=== PATIENT | male | born 1955 | race Caucasian/White ===

== ENCOUNTER 2017-05-17 13:03 | Inpatient (IN) | payer BC ==
[~2017-05-17] VITALS: Ht 177.8 cm; Wt 101.4 kg
[2017-05-17] MEDS ORDERED: SODIUM CHLORIDE 0.9% 1,000 ML IV ONE (13:40)
[2017-05-17] MEDS ORDERED: NITROGLYCERIN 0.2MG/HR TOPICAL PATCH TD ONE (13:45)
[2017-05-17] MEDS ORDERED: ONDANSETRON HCL 4 MG/2 ML VIAL IV ONE (13:45)
[2017-05-17] MEDS ORDERED: MORPHINE SULFATE 4 MG/ML SYRG IV ONE (13:45)
[2017-05-17] MEDS ORDERED: ASPirin 81 mg TAB PO ONE (13:45)
[2017-05-17 14:04] LABS: Basophils # (auto) 0 uL; Basophils % (auto) 0.6 % (0.0-2.0); CONDITION Y; Eosinophils # (auto) 0.2 uL; Eosinophils % (auto) 2.5 % (0.0-7.0); Hematocrit 47.3 % (41.0-53.0); Hemoglobin 16.3 g/dL (13.5-17.5); Lymphocytes # (auto) 1.7 uL; Lymphocytes % (auto) 25.6 % (10.0-50.0); Mean Corpuscular Hemoglobin 30.5 pg (28.0-32.0); Mean Corpuscular Hgb Conc. 34.4 g/dL (32.0-36.0); Mean Corpuscular Volume 88.7 fL (80.0-100.0); Mean Platelet Volume 8.3 fL (7.4-10.4); Monocytes # (auto) 0.6 uL; Monocytes % (auto) 8.4 % (0.0-12.0); Neutrophils # (auto) 4.1 uL; Neutrophils % (auto) 62.9 % (37.0-80.0); Platelet Count (auto) 265 10^3/uL (140-450); Red Cell Distribution Width 14.4 % (11.6-16.0); White Blood Cell 6.6 10^3/uL (4.4-10.8)
[2017-05-17 14:18] LABS: INR 0.96 (0.9-1.15); Partial Thromboplastin Time 25.7 sec (22.64-33.71); Prothrombin Time 10.5 sec (9.37-12.3)
[2017-05-17 14:34] LABS: Albumin 3.8 g/dL (3.4-5.0); BUN/Creatinine Ratio 13.7; Bilirubin, Total 0.4 mg/dL (0.2-1.0); Calcium 8.7 mg/dL (8.5-10.1); Magnesium 2.4 mg/dL (1.6-2.6); Potassium 4.4 mmol/L (3.5-5.1); Total Protein 7.4 g/dL (6.4-8.2)
[2017-05-17 14:38] LABS: B-Type Natriuretic Peptide 18.2 pg/mL (0-100)
[2017-05-17 14:48] LABS: Temperature: 23.5 C (20.0-25.0)
[2017-05-17] MEDS ORDERED: DEXTROSE (50%) 50ML SYRG IV PRN (16:30)
[2017-05-17] MEDS ORDERED: NITROGLYCERIN 0.4 MG SL TAB SL PRN (16:30)
[2017-05-17] MEDS ORDERED: MORPHINE SULF INJ 2 MG/ML SYRINGE 1ML IV PRN (16:30)
[2017-05-17] MEDS ORDERED: NITROGLYCERIN 0.4 MG SL TAB SL ONE (17:41)
[2017-05-17] MEDS: ACCU-CHEK COMFORT CURVE STRIP VI SCH ×2 (18:38→22:06)
[2017-05-17] MEDS: InsuLIN REG 1unit/0.01ml Soln (100units/ml) SC SCH ×2 (18:38→22:00)
[2017-05-17 22:00] VITALS: BP 115/68
[2017-05-17] MEDS: ATORVASTATIN 20 MG TAB PO SCH (22:06)
[2017-05-17] MEDS: FAMOTIDINE 20 MG TAB PO SCH (22:07)
[2017-05-17] MEDS: METOPROLOL TARTRATE 25 MG TAB PO SCH (22:07)
[2017-05-17] MEDS: busPIRone HCL 10 MG TAB PO SCH (22:08)
[2017-05-17] MEDS: ACETAMINOPHEN 500 MG TAB PO PRN (22:14)
[2017-05-17 22:58] VITALS: BP 115/68
[2017-05-18] MEDS ORDERED: METF-863 PO (00:16)
[2017-05-18] MEDS ORDERED: SIMV10TA84 PO (00:16)
[2017-05-18] MEDS ORDERED: CHOL200021 PO (00:16)
[2017-05-18] MEDS ORDERED: BUSP15TA60 PO (00:16)
[2017-05-18] MEDS ORDERED: ASPI-492 PO (00:16)
[2017-05-18] MEDS ORDERED: GLUC1TAB22 PO (00:16)
[2017-05-18] MEDS ORDERED: METO-158 PO (00:16)
[2017-05-18] MEDS ORDERED: METO25TA5 PO (00:16)
[2017-05-18] MEDS ORDERED: GLIM2TAB33 PO (00:16)
[2017-05-18] MEDS ORDERED: RANI1TAB6 PO (00:16)
[2017-05-18] MEDS ORDERED: CITA-77 PO (00:16)
[2017-05-18] MEDS ORDERED: [UNRECOGNIZED DRUG - CODE] PO (00:16)
[2017-05-18] MEDS: ACETAMINOPHEN 500 MG TAB PO PRN ×2 (04:05→10:09)
[2017-05-18 05:30] VITALS: BP 101/60
[2017-05-18] MEDS: HYDROcodone-ACET 5/325MG TAB PO PRN ×3 (06:27→19:49)
[2017-05-18] MEDS: InsuLIN REG 1unit/0.01ml Soln (100units/ml) SC SCH ×4 (06:41→21:14)
[2017-05-18] MEDS: ACCU-CHEK COMFORT CURVE STRIP VI SCH ×4 (06:41→21:14)
[2017-05-18 08:00] VITALS: BP 100/62
[2017-05-18 08:12] LABS: Cholesterol 110 mg/dL (< 200); HDL Cholesterol 32 mg/dL (40-59); LDL Cholesterol 66 mg/dL (< 100); Triglycerides 105 mg/dL (< 150)
[2017-05-18 09:00] VITALS: BP 100/62
[2017-05-18] MEDS: ASPirin 81 mg TAB PO SCH (10:00)
[2017-05-18] MEDS: CITALOPRAM HYDROBR 20 MG TAB PO SCH (10:01)
[2017-05-18] MEDS: busPIRone HCL 10 MG TAB PO SCH ×2 (10:01→21:15)
[2017-05-18] MEDS: FAMOTIDINE 20 MG TAB PO SCH ×2 (10:01→21:14)
[2017-05-18] MEDS: METOPROLOL TARTRATE 25 MG TAB PO SCH ×2 (10:08→21:14)
[2017-05-18 13:00] VITALS: BP 104/62
[2017-05-18] MEDS ORDERED: MORPHINE SULFATE 4 MG/ML SYRG IV PRN (14:51)
[2017-05-18 16:00] VITALS: BP 132/69
[2017-05-18 20:45] LABS: Urine Bilirubin Negative (Negative); Urine Blood Negative /uL (Negative); Urine Color Yellow (Yellow); Urine Glucose Normal (Normal); Urine Ketone Negative (Negative); Urine Nitrite Negative (Negative); Urine RBC <1 /hpf (0 - 3); Urine Urobilinogen Normal (Negative)
[2017-05-18] MEDS: ATORVASTATIN 20 MG TAB PO SCH (21:14)
[2017-05-18 22:00] VITALS: BP 124/70
[2017-05-19 05:30] VITALS: BP 126/77
[2017-05-19] MEDS: InsuLIN REG 1unit/0.01ml Soln (100units/ml) SC SCH ×4 (06:10→21:36)
[2017-05-19] MEDS: ACCU-CHEK COMFORT CURVE STRIP VI SCH ×4 (06:10→21:36)
[2017-05-19] MEDS: HYDROcodone-ACET 5/325MG TAB PO PRN ×2 (06:10→18:10)
[2017-05-19 06:54] LABS: Basophils # (auto) 0 uL; Basophils % (auto) 0.6 % (0.0-2.0); CONDITION Y; Eosinophils # (auto) 0.2 uL; Eosinophils % (auto) 2.7 % (0.0-7.0); Hematocrit 46.5 % (41.0-53.0); Hemoglobin 15.9 g/dL (13.5-17.5); Lymphocytes # (auto) 2.1 uL; Lymphocytes % (auto) 31.9 % (10.0-50.0); Mean Corpuscular Hemoglobin 31.1 pg (28.0-32.0); Mean Corpuscular Hgb Conc. 34.2 g/dL (32.0-36.0); Mean Corpuscular Volume 91.1 fL (80.0-100.0); Mean Platelet Volume 8.9 fL (7.4-10.4); Monocytes # (auto) 0.6 uL; Neutrophils # (auto) 3.6 uL; Neutrophils % (auto) 55.8 % (37.0-80.0); Platelet Count (auto) 237 10^3/uL (140-450); Red Cell Distribution Width 14.2 % (11.6-16.0); White Blood Cell 6.4 10^3/uL (4.4-10.8)
[2017-05-19 07:22] VITALS: BP 122/75
[2017-05-19 07:41] LABS: Albumin 3.4 g/dL (3.4-5.0); BUN/Creatinine Ratio 12.9; Bilirubin, Total 0.6 mg/dL (0.2-1.0); Calcium 8.3 mg/dL (8.5-10.1); Potassium 4.1 mmol/L (3.5-5.1); Total Protein 6.6 g/dL (6.4-8.2)
[2017-05-19] MEDS: CITALOPRAM HYDROBR 20 MG TAB PO SCH (10:47)
[2017-05-19] MEDS: FAMOTIDINE 20 MG TAB PO SCH ×2 (10:47→21:24)
[2017-05-19] MEDS: ACETAMINOPHEN 500 MG TAB PO PRN ×2 (10:47→21:25)
[2017-05-19] MEDS: ASPirin 81 mg TAB PO SCH (10:47)
[2017-05-19] MEDS: busPIRone HCL 10 MG TAB PO SCH ×2 (10:47→21:25)
[2017-05-19] MEDS: METOPROLOL TARTRATE 25 MG TAB PO SCH ×2 (10:48→21:25)
[2017-05-19 13:07] VITALS: BP 140/75
[2017-05-19 16:42] VITALS: BP 136/76
[2017-05-19] MEDS: ATORVASTATIN 20 MG TAB PO SCH (21:24)
[2017-05-19 22:00] VITALS: BP 137/76
[2017-05-20] MEDS: HYDROcodone-ACET 5/325MG TAB PO PRN (05:22)
[2017-05-20 05:30] VITALS: BP_SYST 118; BP_SYST 145; BP_DIAS 67; BP_DIAS 82
[2017-05-20] MEDS: ACCU-CHEK COMFORT CURVE STRIP VI SCH ×3 (05:55→17:30)
[2017-05-20] MEDS: InsuLIN REG 1unit/0.01ml Soln (100units/ml) SC SCH ×3 (06:00→17:00)
[2017-05-20 08:00] VITALS: BP 140/78
[2017-05-20 09:07] VITALS: BP 140/78
[2017-05-20] MEDS: ASPirin 81 mg TAB PO SCH (10:19)
[2017-05-20] MEDS: busPIRone HCL 10 MG TAB PO SCH (10:19)
[2017-05-20] MEDS: FAMOTIDINE 20 MG TAB PO SCH (10:19)
[2017-05-20] MEDS: METOPROLOL TARTRATE 25 MG TAB PO SCH (10:19)
[2017-05-20] MEDS: CITALOPRAM HYDROBR 20 MG TAB PO SCH (10:19)
[2017-05-20 13:08] VITALS: BP 145/77
[2017-05-20] MEDS ORDERED: ADENOSINE 85 MG in GIVE UN-DILUTED 0 ML IV ONE (15:15)
[2017-05-20 17:26] VITALS: BP 147/84
[2017-05-20 18:44] VITALS: BP 147/84
== END 2017-05-20 19:13 | disposition home or self-care (01) | DRG 303 ==
LOC: ER 13:03 → EDBD 13:03 → TELE 13:04 → TELE-WESTW 20:03
PROVIDERS: ADMIT Internal Medicine; ATTEND Internal Medicine
DX: I25.10 Atherosclerotic heart disease of native coronary artery without angina pectoris (principal); Q89.8 Other specified congenital malformations; E11.9 Type 2 diabetes mellitus without complications; E78.00 Pure hypercholesterolemia, unspecified; E11.22 Type 2 diabetes mellitus with diabetic chronic kidney disease; I12.9 Hypertensive chronic kidney disease with stage 1 through stage 4 chronic kidney disease, or unspecified chronic kidney disease; N18.2 Chronic kidney disease, stage 2 (mild); E11.21 Type 2 diabetes mellitus with diabetic nephropathy; K76.0 Fatty (change of) liver, not elsewhere classified; E66.01 Morbid (severe) obesity due to excess calories; Z90.49 Acquired absence of other specified parts of digestive tract; Z93.4 Other artificial openings of gastrointestinal tract status; Z68.32 Body mass index [BMI] 32.0-32.9, adult; Z80.0 Family history of malignant neoplasm of digestive organs; Z82.5 Family history of asthma and other chronic lower respiratory diseases; Z80.1 Family history of malignant neoplasm of trachea, bronchus and lung; Z82.49 Family history of ischemic heart disease and other diseases of the circulatory system; Z80.52 Family history of malignant neoplasm of bladder; Z82.3 Family history of stroke
CPT/HCPCS: 36415; 70450; 71020; 71250; 72125; 73030; 73590; 74176; 78452; 80053; 80061; 81001; 82962; 83036; 83735; 83880; 84443; 84484; 85025; 85610; 85730; 93005; 93017; 93306; 96374; 96375; 99291; J0153; J1815; J2405

== ENCOUNTER 2025-04-14 11:26 | Inpatient (IN) | payer BC, MEDICARE ==
[~2025-04-14] VITALS: Ht 167.6 cm; Wt 86.2 kg
[~2025-04-14 11:26] MED LIST: ASPI-492 PO; BUSP15TA60 PO; CHOL200021 PO; CITA-77 PO; GLIM2TAB33 PO; GLUC1TAB22 PO; IRBE150T49 PO; METF-1201 PO; METO-158 PO; METO25TA5 PO; RANI-435 PO; SIMV10TA20 PO
--- NOTE | 2025-04-14 11:43 | ED.PDOC ---
History of Present Illness HPI Comments 69-year-old male came to the ER stating that he has been having chest pain which started 3 hours ago while sitting down. Patient states that pain radiates to the left shoulder. He did take two nitro without any relief. He has a history of coronary artery disease with stent placement few years ago by Dr. Horner. Apart from coronary artery disease she does have a history of hypertension diabetes. His blood pressure was 157/68 on arrival. Denies any other symptoms. Time Seen by MD: 11:29 Primary Care Provider: SILVIAK Reviewed Notes: Nurses Notes, Medications, Allergies Allergies: Coded Allergies: NO KNOWN ALLERGIES (Unverified , 05/17/17) Home Meds Reported Medications Cholecalciferol (D3) 2,000 Unit Tab, 2000 UNIT PO DAILY, TAB 05/18/17 Glucosamine Hydrochloride (Glucosamine) 1,500 Mg Tab, 1500 MG PO DAILY, TAB 05/18/17 Metformin Hydrochloride (Metformin Hydrochloride) 850 Mg Tab, 850 MG PO DAILY, TAB 05/18/17 Irbesartan (IRBESARTAN) 150 Mg Tab, 150 MG PO DAILY, TAB 05/18/17 Ranitidine HCl (Ranitidine [address]) 150 Mg Tab, 150 MG PO BID, TAB 05/18/17 Aspirin (Ecotrin Low Strength) 81 Mg Tab, 1 TAB PO DAILY, #90 TAB 3 Refills 05/18/17 Citalopram Hydrobromide (Citalopram Hydrobromide) 20 Mg Tab, 20 MG PO DAILY, TAB 05/18/17 Buspirone Hcl (Buspirone Hcl) 15 Mg Tab, 1 TAB PO BID, #60 TAB 05/18/17 Metoprolol Tartrate (Metoprolol Tartrate) 25 Mg Tab, 25 MG PO HS, TAB 05/18/17 Metoprolol Tartrate (Metoprolol Tartrate) 50 Mg Tab, 50 MG PO DAILY, TAB 05/18/17 Glimepiride (Glimepiride) 2 Mg Tab, 1 TAB PO DAILY, #30 TAB 5 Refills 05/18/17 Simvastatin (Simvastatin) 10 Mg Tab, 10 MG PO HS for 30 Days, MG 05/18/17 Information Source: Patient Mode of Arrival: Ambulatory Severity: Moderate Timing: Hours Duration: Since onset Past Medical History PAST MEDICAL HISTORY: DM, High Lipids, HTN, Denies Surgical History: Denies all surgeries Family History Family History: Unknown Social History Smoker: Non-Smoker Alcohol: Denies ETOH Use Drugs: Denies Drug Use Constitutional: denies: chills, diaphoresis, fatigue, fever, malaise, sweats, weakness, others EENTM: denies: blurred vision, double vision, ear bleeding, ear discharge, ear drainage, ear pain, ear ringing, eye pain, eye redness, hearing loss, mouth pain, mouth swelling, nasal discharge, nose bleeding, nose congestion, nose pain, photophobia, tearing, throat pain, throat swelling, voice changes, others Respiratory: denies: cough, hemoptysis, orthopnea, SOB at rest, shortness of breath, SOB with excertion, stridor, wheezing, others Cardiovascular: reports: chest pain; denies: dizzy spells, diaphoresis, Dyspnea on exertion, edema, irregular heart beat, left arm pain, lightheadedness, palpitations, PND, syncope, others Gastrointestinal: denies: abdomen distended, abdominal pain, blood streaked bowels, constipated, diarrhea, dysphagia, difficulty swallowing, hematemesis, melena, nausea, poor appetite, poor fluid intake, rectal bleeding, rectal pain, vomiting, others Genitourinary: denies: burning, dysuria, flank pain, frequency, hematuria, incontinence, penile discharge, penile sore, pain, testicle pain, testicle swelling, urgency, others Neurological: denies: dizziness, fainting, headache, left sided numbness, left sided weakness, numbness, paresthesia, pre-existing deficit, right sided numbness, right sided weakness, seizure, speech problems, tingling, tremors, weakness, others Musculoskeletal: denies: back pain, gout, joint pain, joint swelling, muscle pain, muscle stiffness, neck pain, others Integumetry: denies: bruises, change in color, change in hair/nails, dryness, laceration, lesions, lumps, rash, wounds, others Allergic/Immunocompromised: denies: Difficulty Healing, Frequent Infections, Hives, Itching, others Hematologic/Lymphatic: denies: anemia, blood clots, easy bleeding, easy bruising, swollen glands, others Endocrine: denies: excessive hunger, excessive sweating, excessive thirst, excessive urination, flushing, intolerance to cold, intolerance to heat, unexplained weight gain, unexplained weight loss, others Psychiatric: denies: anxiety, bipolar disorder, depression, hopeless, panic disorder, schizophrenia, sleepless, suicidal, others Physical Exam General Appearance: Moderate Distress HEENT: Normal ENT Inspection, Pharynx Normal, TMs Normal Neck: Full Range of Motion, Non-Tender, Normal, Normal Inspection Respiratory: Chest Non-Tender, Lungs Clear, No Accessory Muscle Use, No Respiratory Distress, Normal Breath Sounds Cardiovascular: No Edema, No JVD, No Murmur, No Gallop, Normal Peripheral Pulses, Regular Rate/Rhythm Breast Exam: Deferred Gastrointestinal: No Organomegaly, Non Tender, No Pulsatile Mass, Normal Bowel Sounds, Soft Genitalia: Deferred Pelvic: Deferred Rectal: Deferred Extremities: No calf tenderness, Normal capillary refill, Normal inspection, Normal range of motion, Non-tender, No pedal edema Musculoskeletal : Apperance: Normal Neurologic: Alert, marriage and family social worker II-XII nml as Tested, No Motor Deficits, Normal Affect, Normal Mood, No Sensory Deficits Cerebellar Function: NOT DONE Reflexes: NOT DONE Skin: Dry, Normal Color, Warm Peripheral Pulses: 3+ Radial (R), 3+ Radial (L) Lymphatic: No Adenopathy Was a procedure done? Was a procedure done?: No EKG EKG : Pulse Rate (adult): 90 Cardiac Rhythm: NSR Differential Dx Considerations may include: Coronary artery disease Electrolyte imbalance X-Ray, Labs, Meds, VS Patient alert. Complaining of chest pain. Vitals stable. Answering questions. EKG reviewed does not show any acute changes. Continues to have chest pain. Was given aspirin. Was given nitro. Was given morphine. Was given Zofran. Reviewed his previous visit. Continue cardiac monitoring. Time of 1ST Reevaluation: 11:42 Reevaluation 1ST: Unchanged Patient Education/Counseling: Diagnosis, Treatment, Prognosis, Need For Follow Up Family Education/Counseling: No Family Present Departure 1 Departure Time of Disposition: 11:42 Impression: Primary Impression: Chest pain of unknown etiology Additional Impressions: Hypertension Qualified Codes: I10 - Essential (primary) hypertension Uncontrolled diabetes mellitus Qualified Codes: E13.65 - Other specified diabetes mellitus with hyperglycemia Disposition: ADMITTED INPATIENT Admit to: Med Surg Condition: Guarded Critical Care Note Critical Care Time?: Yes (90 min-critical care time only) Critical care comment: Continue monitoring chest pain Stability Stability form required: No Heart Score Heart Score: Heart Score Response (Comments) Value History Slightly Suspicious 0 EKG Normal 0 Age >65 2 Risk Factors >3 or Hx ASHD 2 Troponin Normal limit 0 Total 4 SAQIB EVANGELISTA MD April 14, 2025 11:43
[2025-04-14 11:50] VITALS: PULSE 97
[2025-04-14 12:13] LABS: Basophils # (auto) 0 10 ^3/uL (0-0.2); Basophils % (auto) 0.7 % (0.0-2.0); Eosinophils # (auto) 0.2 10 ^3/uL (0-0.8); Eosinophils % (auto) 2.5 % (0.0-7.0); Hematocrit 42.3 % (41.0-53.0); Hemoglobin 13.2 g/dL (13.5-17.5); Lymphocytes % (auto) 29.6 % (10.0-50.0); Mean Corpuscular Hemoglobin 20.8 pg (28.0-32.0); Mean Corpuscular Hgb Conc. 31.3 g/dL (32.0-36.0); Mean Corpuscular Volume 66.5 fL (80.0-100.0); Monocytes # (auto) 0.5 10 ^3/uL (0-1.3); Monocytes % (auto) 7.6 % (0.0-12.0); Neutrophils # (auto) 4.1 10 ^3/uL (1.6-8.6); Neutrophils % (auto) 59.6 % (37.0-80.0); Platelet Count (auto) 330 10^3/uL (140-450); Red Blood Cells 6.37 10^6/uL (4.5-5.90); White Blood Cell 6.9 10^3/uL (4.4-10.8)
--- NOTE | 2025-04-14 12:25 | DVH ---
CHEST RADIOGRAPH Indication: sob Technique: Single frontal view of the chest was obtained Comparison: FINDINGS: The cardiac silhouette is unremarkable. The lungs demonstrate no pulmonary airspace consolidation. Th e pulmonary vasculature is unremarkable. There is no pleural effusion.. There is no pneumothorax. IMPRESSION: 1. No pulmonary airspace consolidation.
[2025-04-14 12:58] LABS: Chloride 103 mmol/L (98-107); Potassium 4.6 mmol/L (3.5-5.1); Sodium 138 mmol/L (136-145)
[2025-04-14 12:59] LABS: Anion Gap 12 (5-15); Carbon Dioxide 23 mmol/L (20-31)
[2025-04-14] MEDS: ASPirin 325 MG TAB PO ONE (13:02)
[2025-04-14] MEDS: ONDANSETRON HCL 4 MG/2 ML VIAL IV ONE (13:03)
[2025-04-14 13:04] LABS: BUN/Creatinine Ratio 11.4 (10.0-20.0); Blood Urea Nitrogen 13 mg/dL (9-23)
[2025-04-14] MEDS: MORPHINE SULFATE 4 MG/ML SYR/VIAL IV ONE (13:04)
[2025-04-14 13:05] LABS: Glucose 227 mg/dL (74-106)
[2025-04-14] MEDS: NITROGLYCERIN 0.4 MG SL TAB SL ONE (13:07)
[2025-04-14] MEDS ORDERED: DOCUSATE SOD 100 MG CAP PO PRN (16:30)
[2025-04-14] MEDS ORDERED: ACETAMINOPHEN 325 MG TAB PO PRN (16:30)
[2025-04-14] MEDS ORDERED: ONDANSETRON HCL 4 MG/2 ML VIAL IV PRN (16:30)
--- NOTE | 2025-04-14 16:56 | DVHHP2 ---
Admitting Diagnosis: Chest pain History of Present Illness 69-year-old male came to the ER stating that he has been having chest pain which started 3 hours ago while sitting down. Patient states that pain radiates to the left shoulder. He did take two nitro without any relief. He has a history of coronary artery disease with stent placement few years ago by Dr. Horner. Apart from coronary artery disease she does have a history of hypertension diabetes. His blood pressure was 157/68 on arrival. Denies any other symptoms. PAST MEDICAL HISTORY: DM, High Lipids, HTN, Denies Surgical History: Denies all surgeries Family History Family History: Unknown Social History Smoker: Non-Smoker Alcohol: Denies ETOH Use Drugs: Denies Drug Use Patient Family History: Cancer of colon G8 MOTHER Chronic obstructive lung disease (situation) G8 MOTHER FH: bladder cancer G8 FATHER FH: heart attack G8 FATHER GRANDFATHER FH: lung cancer GRANDMOTHER Family history: Hypertension G8 MOTHER Stroke GRANDMOTHER Allergies: Coded Allergies: Hydromorphone (Verified Allergy, Severe, 04/14/25) Lisinopril (Verified Allergy, Severe, 04/14/25) Valproic Acid (Verified Allergy, Severe, 04/14/25) Home Meds Reported Medications Cholecalciferol (D3) 2,000 Unit Tab, 2000 UNIT PO DAILY, TAB 05/18/17 Glucosamine Hydrochloride (Glucosamine) 1,500 Mg Tab, 1500 MG PO DAILY, TAB 05/18/17 Metformin Hydrochloride (Metformin Hydrochloride) 850 Mg Tab, 850 MG PO DAILY, TAB 05/18/17 Irbesartan (IRBESARTAN) 150 Mg Tab, 150 MG PO DAILY, TAB 05/18/17 Ranitidine HCl (Ranitidine [address]) 150 Mg Tab, 150 MG PO BID, TAB 05/18/17 Aspirin (Ecotrin Low Strength) 81 Mg Tab, 1 TAB PO DAILY, #90 TAB 3 Refills 05/18/17 Citalopram Hydrobromide (Citalopram Hydrobromide) 20 Mg Tab, 20 MG PO DAILY, TAB 05/18/17 Buspirone Hcl (Buspirone Hcl) 15 Mg Tab, 1 TAB PO BID, #60 TAB 05/18/17 Metoprolol Tartrate (Metoprolol Tartrate) 25 Mg Tab, 25 MG PO HS, TAB 05/18/17 Metoprolol Tartrate (Metoprolol Tartrate) 50 Mg Tab, 50 MG PO DAILY, TAB 05/18/17 Glimepiride (Glimepiride) 2 Mg Tab, 1 TAB PO DAILY, #30 TAB 5 Refills 05/18/17 Simvastatin (Simvastatin) 10 Mg Tab, 10 MG PO HS for 30 Days, MG 05/18/17 Current Medications Current Medications Medications (Trade) Dose Ordered Sig/Margo Route PRN Reason Start Time Stop Time Status Last Admin Aspirin (Ecotrin Enteric Coated Tablet) 81 mg DAILY PO 04/15/25 10:00 UNV Metoprolol Tartrate (Lopressor Tablet) 50 mg DAILY PO 04/15/25 10:00 UNV Patient Own Medication 1 tab BID PO 04/14/25 22:00 UNV Patient Own Medication 2,000 unit DAILY PO 04/15/25 10:00 UNV Patient Own Medication 150 mg DAILY PO 04/15/25 10:00 UNV Patient Own Medication 150 mg BID PO 04/14/25 22:00 UNV Patient Own Medication 10 mg HS PO 04/14/25 22:00 UNV Sodium Chloride (Saline Lock Ns) 10 ml Q8HR IV 04/14/25 22:00 UNV Docusate Sodium (Colace Capsule) 100 mg BIDPRN PRN PO FOR CONSTIPATION 04/14/25 16:30 UNV Acetaminophen (Tylenol Tablet) 650 mg Q6HP PRN PO PAIN SCALE 1-3 OR TEMP>100.4 04/14/25 16:30 UNV Acetaminophen/ Hydrocodone Bitart ([place] 5/325MG Tab) 1 tab Q4HP PRN PO MODERATE PAIN (4-6 PAIN SCALE) 04/14/25 16:30 UNV Ondansetron HCl (Zofran) 4 mg Q4HP PRN IV NAUSEA / VOMITING 04/14/25 16:30 UNV Enoxaparin Sodium (Lovenox) 40 mg DAILY SC 04/15/25 10:00 UNV Nitroglycerin (Ntrostat Sublingual) 0.4 mg Q5MINP PRN SL FOR CHEST PAIN 04/14/25 16:30 UNV Morphine Sulfate 2 mg Q30M PRN IV FOR CHEST PAIN 04/14/25 16:30 UNV Diagnostic Test (Pha) (Accu-Chek Comfort Curve T) 1 strip ACHS 04/14/25 17:00 UNV Insulin Human Regular (InsuLIN R) ACHS SC 04/14/25 17:00 UNV Dextrose 50 ml UD PRN IV Blood Sugar LESS THAN 60 04/14/25 17:00 UNV Vital Signs Vital Signs Date Time Temp Pulse Resp B/P (MAP) Pulse Ox O2 Delivery O2 Flow Rate FiO2 04/14/25 15:54 97.9 76 18 105/68 (80) 94 97.9 Physical Exam Generally-69 years old male, well nourished well developed. No apparent distress HEENT HEENT-atraumatic normocephalic Heart-regular rate and rhythm Lungs clear to auscultate bilaterally Abdomen soft nontender nondistended Musculoskeletal-no edema cyanosis Neuro-AO x3, no focal deficits Results Labs Test 04/14/25 12:38 04/14/25 11:37 Range/Units Troponin I High Sensitivity 16 </=54 ng/L White Blood Count 6.9 4.4-10.8 10^3/uL Red Blood Count 6.37 H 4.5-5.90 10^6/uL Hemoglobin 13.2 L 13.5-17.5 g/dL Hematocrit 42.3 41.0-53.0 % Mean Corpuscular Volume 66.5 L 80.0-100.0 fL Mean Corpuscular Hemoglobin 20.8 L 28.0-32.0 pg Mean Corpuscular Hemoglobin Concent 31.3 L 32.0-36.0 g/dL Red Cell Distribution Width 22.0 H 11.8-14.3 % Platelet Count 330 140-450 10^3/uL Mean Platelet Volume 8.7 6.9-10.8 fL Neutrophils (%) (Auto) 59.6 37.0-80.0 % Lymphocytes (%) (Auto) 29.6 10.0-50.0 % Monocytes (%) (Auto) 7.6 0.0-12.0 % Eosinophils (%) (Auto) 2.5 0.0-7.0 % Basophils (%) (Auto) 0.7 0.0-2.0 % Neutrophils # (Auto) 4.1 1.6-8.6 10 ^3/uL Lymphocytes # (Auto) 2.0 0.4-5.4 10 ^3/uL Monocytes # (Auto) 0.5 0-1.3 10 ^3/uL Eosinophils # (Auto) 0.2 0-0.8 10 ^3/uL Basophils # (Auto) 0 0-0.2 10 ^3/uL Nucleated Red Blood Cells 0.0 % Sodium Level 138 136-145 mmol/L Potassium Level 4.6 3.5-5.1 mmol/L Chloride Level 103 98-107 mmol/L Carbon Dioxide Level 23 20-31 mmol/L Anion Gap 12 5-15 Blood Urea Nitrogen 13 9-23 mg/dL Creatinine 1.14 0.700-1.30 mg/dL Glomerular Filtration Rate Calc 70 >90 mL/min BUN/Creatinine Ratio 11.4 10.0-20.0 Serum Glucose 227 H 74-106 mg/dL Calcium Level 10.0 8.7-10.4 mg/dL Primary Diagnosis Chest pain rule out ACS Plan Troponin negative EKG normal sinus rhythm Patient still has intermittent chest pain Cardiac diet for now, NPO midnight Check echo of the heart rule out ACS Nuclear stress test to assess for ischemic cardiomyopathy Resume home meds Start insulin sliding scale while inpatient. Fingerstick 140-180 Full code Lovenox for DVT prophylaxis No GI prophylaxis needed Plan discussed with: Patient Problems List: (1) Hypertension Status: Acute (2) Chest pain Status: Acute Date of Service: April 14, 2025 Billing Provider: ARNEL CONTRERAS MD Common Visit Codes: [id number] INP/OBS CARE (MOD) ARNEL CONTRERAS MD April 14, 2025 16:56
[2025-04-14 17:00] VITALS: BP 139/74; PULSE 71; TEMP 98.3; O2SAT 97
[2025-04-14] MEDS ORDERED: DEXTROSE (50%) 50ML SYRG IV PRN (17:00)
[2025-04-14] MEDS: InsuLIN REG 1unit/0.01ml Soln (100units/ml) SC SCH (17:00)
[2025-04-14] MEDS: ACCU-CHEK COMFORT CURVE STRIP VI SCH (18:20)
[2025-04-14 21:00] VITALS: BP 143/72; PULSE 81; RESP 15; TEMP 98.1; O2SAT 93
[2025-04-14] MEDS: SODIUM CHLOR 0.9% PF (SALINE LOCK) 10ML VIAL/SYR IV SCH (21:49)
[2025-04-14] MEDS: FAMOTIDINE 20 MG TAB PO SCH (21:50)
[2025-04-14] MEDS: busPIRone HCL 10 MG TAB PO SCH (21:57)
[2025-04-14] MEDS: SIMVASTATIN 10 MG PO SCH (22:00)
[2025-04-14] MEDS: MORPHINE SULFATE INJ 2 MG/ml SYRG IV PRN (22:45)
[2025-04-14 23:18] VITALS: BP 143/72; PULSE 81; RESP 15; TEMP 98.1; O2SAT 93
[2025-04-15] VITALS (9 sets, daily range): BP systolic 129–161; BP diastolic 70–94; PULSE 73–99; RESP 16–19; TEMP 97–98.6; O2SAT 82–98
[2025-04-15] MEDS: HYDROcodone-ACET 5/325MG TAB PO PRN (01:50)
[2025-04-15] MEDS: D5W/LACTATED RINGERS 1,000 ML IV ONE (06:28)
--- NOTE | 2025-04-15 07:24 | ECG ---
[facility] Test Date: 2025-04-14 Test Time: 11:34:37 Pat Name: TREVOR SERRANO Department: ER Room: [address] [place] [address] 8 Gender: M Clerk Analyst: XENIA : 1955 Requested By: ARNEL CONTRERAS Order Number: [id number] Reading MD: Rojas Leija Measurements Intervals [place] Rate: 92 P: 79 DE: 170 QRS: 5 QRSD: 97 T: 10 QT: 364 QTc: 451 Interpretive Statements Sinus rhythm Borderline low voltage, extremity leads Probable anteroseptal infarct, old Electronically Signed On 04-15-2025 12:16:14 PDT by Rojas Leija Please click the below link to view image of tracing.
--- NOTE | 2025-04-15 07:24 | ECG ---
[facility] Test Date: 2025-04-14 Test Time: 11:33:48 Pat Name: TREVOR SERRANO Department: ER Room: [address] [place] [address] 8 Gender: M Department Helper: XENIA : 1955 Requested By: SAQIB EVANGELISTA Order Number: [id number] Reading MD: Rojas Leija Measurements Intervals [place] Rate: 94 P: 66 KS: 174 QRS: 10 QRSD: 98 T: 13 QT: 368 QTc: 461 Interpretive Statements Sinus rhythm Low voltage, extremity and precordial leads Consider anterior infarct Baseline wander in lead(s) II,aVR Electronically Signed On 04-15-2025 12:16:00 PDT by Rojas Leija Please click the below link to view image of tracing.
[2025-04-15] MEDS: ENOXAPARIN SOD 40 MG/0.4 ML SYRINGE SC SCH (09:13)
[2025-04-15] MEDS: ASPirin-EC 81 mg tab PO SCH (09:13)
[2025-04-15] MEDS: CHOLECALCIFEROL (VITD3) 1,000UNIT=25mCg TAB PO SCH (09:14)
[2025-04-15] MEDS: LOSARTAN POTASSIUM 50 MG TAB PO SCH (09:14)
[2025-04-15] MEDS: METOPROLOL TARTRATE 50 MG TAB PO SCH (09:15)
[2025-04-15] MEDS ORDERED: RANO10003 PO (09:23)
[2025-04-15] MEDS ORDERED: EMPA1TAB3 PO (09:23)
[2025-04-15] MEDS ORDERED: LOSA-533 PO (09:23)
[2025-04-15] MEDS ORDERED: NITR1SPR TL (09:24)
[2025-04-15] MEDS ORDERED: CALCTAB62 OR (09:27)
[2025-04-15] MEDS ORDERED: ALPR0.254 PO (09:27)
[2025-04-15] MEDS ORDERED: LEVO-848 PO (09:27)
[2025-04-15] MEDS ORDERED: ATOR80TA PO (09:27)
[2025-04-15] MEDS ORDERED: VENL1TAB97 PO (09:27)
[2025-04-15] MEDS ORDERED: OMEP20TA PO (09:27)
[2025-04-15] MEDS ORDERED: IRBESARTAN 150 MG PO SCH (10:00)
--- NOTE | 2025-04-15 10:50 | DVHPN2 ---
Changes from previous H/P or p: No Changes Objective Vitals Vital Signs Date Time Temp Pulse Resp B/P (MAP) Pulse Ox O2 Delivery O2 Flow Rate FiO2 04/15/25 10:15 91 136/70 04/15/25 09:16 97.3 17 94 97.3 04/15/25 08:00 Room Air* 0 21 Medications Current Medications Medications Dose Ordered Sig/Margo Route Start Time Stop Time Status Last Admin Dose Admin Aspirin 81 mg DAILY PO 04/15/25 10:00 04/15/25 09:13 81 MG Metoprolol Tartrate 50 mg DAILY PO 04/15/25 10:00 04/15/25 09:15 50 MG Buspirone HCl 15 mg BID PO 04/14/25 22:00 04/15/25 09:14 15 MG Cholecalciferol 2,000 unit DAILY PO 04/15/25 10:00 04/15/25 09:14 2,000 UNIT Famotidine 20 mg BID PO 04/14/25 22:00 04/15/25 09:13 20 MG Patient Own Medication 10 mg HS PO 04/14/25 22:00 Sodium Chloride 10 ml Q8HR IV 04/14/25 22:00 04/15/25 05:53 10 ML Docusate Sodium 100 mg BIDPRN PRN PO 04/14/25 16:30 Acetaminophen 650 mg Q6HP PRN PO 04/14/25 16:30 Acetaminophen/ Hydrocodone Bitart 1 tab Q4HP PRN PO 04/14/25 16:30 04/15/25 09:14 1 TAB Ondansetron HCl 4 mg Q4HP PRN IV 04/14/25 16:30 Enoxaparin Sodium 40 mg DAILY SC 04/15/25 10:00 04/15/25 09:13 40 MG Nitroglycerin 0.4 mg Q5MINP PRN SL 04/14/25 16:30 Morphine Sulfate 2 mg Q30M PRN IV 04/14/25 16:30 04/14/25 22:45 2 MG Diagnostic Test (Pha) 1 strip ACHS 04/14/25 17:00 04/15/25 06:25 1 STRIP Insulin Human Regular ACHS SC 04/14/25 17:00 04/15/25 06:25 2 UNITS Dextrose 50 ml UD PRN IV 04/14/25 17:00 Losartan Potassium 50 mg DAILY PO 04/15/25 10:00 04/15/25 09:14 50 MG Laboratory Results Laboratory Tests 04/14/25 11:37 Chemistry Test 04/14/25 11:37 Calcium Level 10.0 mg/dL (8.7-10.4) Labs and/or images reviewed: Labs reviewed by me, Image(s) reviewed by me Assessment/Plan Assessment/Plan Chest pain rule out coronary artery disease: Troponin negative x3, consult for patient's complaint operator Dr. Horner, treatment per ACS protocol History of coronary artery disease status post stents by Dr. Horner two yrs ago Diabetes Hypertension Hypercholesterolemia Plan discussed with: Patient My Orders Orders - RADHA THOMAS MD Procedure Category Date Status Time * Cardiology Consult CONS 04/15/25 Transmitted 10:45 Date of Service: April 15, 2025 Billing Provider: RADHA THOMAS MD Common Visit Codes: [id number] INP/OBS CARE(HIGH) RADHA THOMAS MD April 15, 2025 10:50
[2025-04-16] VITALS (8 sets, daily range): BP systolic 113–164; BP diastolic 62–89; PULSE 72–97; RESP 16–20; TEMP 97.3–98.8; O2SAT 79–99
[2025-04-16] MEDS: NITROGLYCERIN 0.4 MG SL TAB SL PRN (05:25)
--- NOTE | 2025-04-16 09:30 | DVHPN2 ---
Reviewed: Care Plan, H&P, Labs, Medications, Previous Orders, Radiology Changes from previous H/P or p: No Changes Objective Vitals Vital Signs Date Time Temp Pulse Resp B/P (MAP) Pulse Ox O2 Delivery O2 Flow Rate FiO2 04/16/25 09:00 98.0 97 17 148/81 (103) 79 98.0 04/16/25 08:00 Room Air* 0 21 Intake/Output Intake and Output 04/16/25 07:00 Intake Total 1300 ml Balance 1300 ml Intake Oral 500 ml IV Total 800 ml # Voids 5 Medications Current Medications Medications Dose Ordered Sig/Margo Route Start Time Stop Time Status Last Admin Dose Admin Aspirin 81 mg DAILY PO 04/15/25 10:00 04/15/25 09:13 81 MG Metoprolol Tartrate 50 mg DAILY PO 04/15/25 10:00 04/15/25 09:15 50 MG Buspirone HCl 15 mg BID PO 04/14/25 22:00 04/15/25 22:05 15 MG Cholecalciferol 2,000 unit DAILY PO 04/15/25 10:00 04/15/25 09:14 2,000 UNIT Famotidine 20 mg BID PO 04/14/25 22:00 04/15/25 22:07 20 MG Patient Own Medication 10 mg HS PO 04/14/25 22:00 Sodium Chloride 10 ml Q8HR IV 04/14/25 22:00 04/16/25 05:36 10 ML Docusate Sodium 100 mg BIDPRN PRN PO 04/14/25 16:30 Acetaminophen 650 mg Q6HP PRN PO 04/14/25 16:30 Acetaminophen/ Hydrocodone Bitart 1 tab Q4HP PRN PO 04/14/25 16:30 04/15/25 22:25 1 TAB Ondansetron HCl 4 mg Q4HP PRN IV 04/14/25 16:30 Enoxaparin Sodium 40 mg DAILY SC 04/15/25 10:00 04/15/25 09:13 40 MG Nitroglycerin 0.4 mg Q5MINP PRN SL 04/14/25 16:30 04/16/25 05:47 0.4 MG Morphine Sulfate 2 mg Q30M PRN IV 04/14/25 16:30 04/15/25 13:04 2 MG Diagnostic Test (Pha) 1 strip ACHS 04/14/25 17:00 04/16/25 06:33 1 STRIP Insulin Human Regular ACHS SC 04/14/25 17:00 04/16/25 06:33 3 UNITS Dextrose 50 ml UD PRN IV 04/14/25 17:00 Losartan Potassium 50 mg DAILY PO 04/15/25 10:00 04/15/25 09:14 50 MG Laboratory Results Laboratory Tests 04/14/25 11:37 Labs and/or images reviewed: Labs reviewed by me, Image(s) reviewed by me Assessment/Plan Assessment/Plan Chest pain rule out coronary artery disease: Troponin negative x3, 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 Horner, treatment per ACS protocol History of coronary artery disease status post stents by Dr. Horner two yrs ago Diabetes Hypertension Hypercholesterolemia Continue current management Plan discussed with: Patient My Orders Orders - RADHA THOMAS MD Procedure Category Date Status Time * Cardiology Consult CONS 04/15/25 Transmitted 10:45 Date of Service: April 16, 2025 Billing Provider: RADHA THOMAS MD Common Visit Codes: [id number] INP/OBS CARE(HIGH) RADHA THOMAS MD April 16, 2025 09:30
--- NOTE | 2025-04-16 09:58 | DVHINCON2 ---
Date of service: April 16, 2025 History of Present Illness 69 yo M with hx of cad s/p pci, htn, HL DM admitted for chest pain. trops are -. ecg shows SR . pt had PCI with me in the past at [facility] Past Medical History reviewed Family History: Cancer of colon G8 MOTHER Chronic obstructive lung disease (situation) G8 MOTHER FH: bladder cancer G8 FATHER FH: heart attack G8 FATHER GRANDFATHER FH: lung cancer GRANDMOTHER Family history: Hypertension G8 MOTHER Stroke GRANDMOTHER Allergies: Coded Allergies: Hydromorphone (Verified Allergy, Severe, 04/14/25) Lisinopril (Verified Allergy, Severe, 04/14/25) Valproic Acid (Verified Allergy, Severe, 04/14/25) Home Meds Reported Medications Calcium Carbonate-Vitamin D (Calcium 500 + D) +D Tab, 1 OR, TAB 04/15/25 Alprazolam (Alprazolam) 0.25 Mg Tab, 1 TAB PO TID, #90 TAB 04/15/25 Venlafaxine Hydrochloride (Venlafaxine Hcl) 37.5 Mg Tab, 1 TAB PO BID, #60 TAB 1 Refill 04/15/25 Omeprazole (Gnp Omeprazole) 20 Mg Tab, 1 TAB PO DAILY, #90 TAB 1 Refill 04/15/25 Levothyroxine Sodium (SYNTHROID TABLET) 50 Mcg Tb, 1 TAB PO DAILY, #30 TAB 5 Refills 04/15/25 Atorvastatin Calcium (Lipitor) 80 Mg Tab, 1 TAB PO DAILY, #30 TAB 5 Refills 04/15/25 Nitroglycerin (Nitroglycerin Lingual) 0.4 Mg/[place] Spr, 0.4 MG TL, SPR 04/15/25 Ranolazine (Ranolazine ER) 1,000 Mg Tab, 1000 MG PO, TAB 04/15/25 Empagliflozin (Jardiance) 25 Mg Tab, 25 MG PO, TAB 04/15/25 Losartan Potassium (Losartan Potassium) 25 Mg Tab, 1 TAB PO DAILY, #90 TAB 1 Refill 04/15/25 Cholecalciferol (D3) 2,000 Unit Tab, 2000 UNIT PO DAILY, TAB 05/18/17 Glucosamine Hydrochloride (Glucosamine) 1,500 Mg Tab, 1500 MG PO DAILY, TAB 05/18/17 Metformin Hydrochloride (Metformin Hydrochloride) 850 Mg Tab, 850 MG PO DAILY, TAB 05/18/17 Irbesartan (IRBESARTAN) 150 Mg Tab, 150 MG PO DAILY, TAB 05/18/17 Ranitidine HCl (Ranitidine [address]) 150 Mg Tab, 150 MG PO BID, TAB 05/18/17 Aspirin (Ecotrin Low Strength) 81 Mg Tab, 1 TAB PO DAILY, #90 TAB 3 Refills 05/18/17 Citalopram Hydrobromide (Citalopram Hydrobromide) 20 Mg Tab, 20 MG PO DAILY, TAB 05/18/17 Buspirone Hcl (Buspirone Hcl) 15 Mg Tab, 1 TAB PO BID, #60 TAB 05/18/17 Metoprolol Tartrate (Metoprolol Tartrate) 25 Mg Tab, 25 MG PO HS, TAB 05/18/17 Metoprolol Tartrate (Metoprolol Tartrate) 50 Mg Tab, 50 MG PO DAILY, TAB 05/18/17 Glimepiride (Glimepiride) 2 Mg Tab, 1 TAB PO DAILY, #30 TAB 5 Refills 05/18/17 Simvastatin (Simvastatin) 10 Mg Tab, 10 MG PO HS for 30 Days, MG 05/18/17 Current Medications Current Medications Medications (Trade) Dose Ordered Sig/Margo Route PRN Reason Start Time Stop Time Status Last Admin Aspirin (Ecotrin Enteric Coated Tablet) 81 mg DAILY PO 04/15/25 10:00 04/15/25 09:13 Metoprolol Tartrate (Lopressor Tablet) 50 mg DAILY PO 04/15/25 10:00 04/15/25 09:15 Cholecalciferol (Vitamin D3 Tablet) 2,000 unit DAILY PO 04/15/25 10:00 04/15/25 09:14 Patient Own Medication 150 mg DAILY PO 04/15/25 10:00 04/14/25 19:17 DC Enoxaparin Sodium (Lovenox) 40 mg DAILY SC 04/15/25 10:00 04/15/25 09:13 Losartan Potassium (Cozaar Tablet) 50 mg DAILY PO 04/15/25 10:00 04/15/25 09:14 Review of Systems 10 pt ros otherwise negative Vital Signs Vital Signs Date Time Temp Pulse Resp B/P (MAP) Pulse Ox O2 Delivery O2 Flow Rate FiO2 04/16/25 09:00 98.0 97 17 148/81 (103) 79 98.0 5/27/25 08:00 Room Air* 0 21 Physical Exam nad s1 s2 rrr ctab soft nt/nd no edeama Labs/Diagnostic Data Labs Test 04/16/25 07:55 04/16/25 06:18 04/14/25 11:37 Range/Units Troponin I High Sensitivity 17 </=54 ng/L POC Glucose 161 H 70-106 mg/dl White Blood Count 6.9 4.4-10.8 10^3/uL Red Blood Count 6.37 H 4.5-5.90 10^6/uL Hemoglobin 13.2 L 13.5-17.5 g/dL Hematocrit 42.3 41.0-53.0 % Mean Corpuscular Volume 66.5 L 80.0-100.0 fL Mean Corpuscular Hemoglobin 20.8 L 28.0-32.0 pg Mean Corpuscular Hemoglobin Concent 31.3 L 32.0-36.0 g/dL Red Cell Distribution Width 22.0 H 11.8-14.3 % Platelet Count 330 140-450 10^3/uL Mean Platelet Volume 8.7 6.9-10.8 fL Neutrophils (%) (Auto) 59.6 37.0-80.0 % Lymphocytes (%) (Auto) 29.6 10.0-50.0 % Monocytes (%) (Auto) 7.6 0.0-12.0 % Eosinophils (%) (Auto) 2.5 0.0-7.0 % Basophils (%) (Auto) 0.7 0.0-2.0 % Neutrophils # (Auto) 4.1 1.6-8.6 10 ^3/uL Lymphocytes # (Auto) 2.0 0.4-5.4 10 ^3/uL Monocytes # (Auto) 0.5 0-1.3 10 ^3/uL Eosinophils # (Auto) 0.2 0-0.8 10 ^3/uL Basophils # (Auto) 0 0-0.2 10 ^3/uL Nucleated Red Blood Cells 0.0 % Sodium Level 138 136-145 mmol/L Potassium Level 4.6 3.5-5.1 mmol/L Chloride Level 103 98-107 mmol/L Carbon Dioxide Level 23 20-31 mmol/L Anion Gap 12 5-15 Blood Urea Nitrogen 13 9-23 mg/dL Creatinine 1.14 0.700-1.30 mg/dL Glomerular Filtration Rate Calc 70 >90 mL/min BUN/Creatinine Ratio 11.4 10.0-20.0 Serum Glucose 227 H 74-106 mg/dL Calcium Level 10.0 8.7-10.4 mg/dL Assessment ro ACS chronic chest pain cad htn hl DM Plan/Recommendation acs ruled out echo shows preserved lvef stress mpi pending today will follow Plan discussed with: Patient MAAME ALVAREZ MD April 16, 2025 09:58
[2025-04-16] MEDS: REGADENOSON 0.4 MG/5 ML SYRG IV ONE ×2 (10:05→10:19)
--- NOTE | 2025-04-16 10:32 | DVHSR ---
APPROVED REPORT EXAM: Two-dimensional and M-mode echocardiogram with Doppler and color Doppler. Blood Pressure: 161/92 mmHg INDICATION R/O ACS RISK FACTORS Height: 5'6", Weight: 189 DIMENSIONS LVDd4.2 (3.8-5.7cm)LA (2D)4.1 (1.9-4.0cm)Aortic Root3.2 (2.0-3.7cm) LVDs2.5 (2.5-4.0cm)LA (MM) (1.9-4.0cm)Aortic Cusp Exc3.0 (1.5-2.0cm) EF (%) 71.0 (55-70%)Rt. Atrium3.6 (1.9-4.0cm)Asc. Aorta3.0 cm IVSd1.1 (0.7-1.1cm)RV (D)3.8 (1.8-2.4cm) PWd1.3 (0.7-1.1cm) Mitral Valve MitralMitral Stenosis E wave0.63m/sMV Mean GR.mmHg A wave1.04m/sMV Peak GR.mmHg E/A ratio0.62D MVAcm2 DECEL [id number] 1/2 [place] Aortic Valve Aortic ValveAortic Stenosis V11.28m/Otto Mean GR.5mmHg V21.35m/Otto Peak GR.7mmHg LVOT Diameter2.1 (1.8-2.4cm)Doppler AVA3.28cm2 Pulmonic Valve V21.17m/s Other Information Quality : Technically LimitedRhythm : Technically limited study due to body habitus. Conclusion lvef 70% hyperdyanmic LV moderate LVH no severe valve abnormalities noted
[2025-04-16] MEDS: PRAVASTATIN SODIUM 20 MG TAB PO SCH (22:13)
[2025-04-17 01:00] VITALS: BP 144/69; PULSE 79; RESP 18; TEMP 97.3; O2SAT 90
[2025-04-17 05:00] VITALS: BP 137/76; PULSE 83; RESP 20; TEMP 97.7; O2SAT 96
[2025-04-17 08:00] VITALS: PULSE 89; PULSE 97; O2SAT 99
[2025-04-17 09:00] VITALS: BP 156/89; PULSE 82; RESP 18; TEMP 97.4; O2SAT 95
--- NOTE | 2025-04-17 10:28 | DVHDS2 ---
Discharge Summary Date of Admission April 14, 2025 at 16:25 Date of Discharge: April 17, 2025 Admitting Diagnosis Chest pain Wounds: None Labs/Diagnostic Data: Laboratory Results Test 04/17/25 06:17 04/16/25 07:55 04/14/25 11:37 POC Glucose 170 mg/dl (70-106) Troponin I High Sensitivity 17 ng/L (</=54) White Blood Count 6.9 10^3/uL (4.4-10.8) Red Blood Count 6.37 10^6/uL (4.5-5.90) Hemoglobin 13.2 g/dL (13.5-17.5) Hematocrit 42.3 % (41.0-53.0) Mean Corpuscular Volume 66.5 fL (80.0-100.0) Mean Corpuscular Hemoglobin 20.8 pg (28.0-32.0) Mean Corpuscular Hemoglobin Concent 31.3 g/dL (32.0-36.0) Red Cell Distribution Width 22.0 % (11.8-14.3) Platelet Count 330 10^3/uL (140-450) Mean Platelet Volume 8.7 fL (6.9-10.8) Neutrophils (%) (Auto) 59.6 % (37.0-80.0) Lymphocytes (%) (Auto) 29.6 % (10.0-50.0) Monocytes (%) (Auto) 7.6 % (0.0-12.0) Eosinophils (%) (Auto) 2.5 % (0.0-7.0) Basophils (%) (Auto) 0.7 % (0.0-2.0) Neutrophils # (Auto) 4.1 10 ^3/uL (1.6-8.6) Lymphocytes # (Auto) 2.0 10 ^3/uL (0.4-5.4) Monocytes # (Auto) 0.5 10 ^3/uL (0-1.3) Eosinophils # (Auto) 0.2 10 ^3/uL (0-0.8) Basophils # (Auto) 0 10 ^3/uL (0-0.2) Nucleated Red Blood Cells 0.0 % Sodium Level 138 mmol/L (136-145) Potassium Level 4.6 mmol/L (3.5-5.1) Chloride Level 103 mmol/L (98-107) Carbon Dioxide Level 23 mmol/L (20-31) Anion Gap 12 (5-15) Blood Urea Nitrogen 13 mg/dL (9-23) Creatinine 1.14 mg/dL (0.700-1.30) Glomerular Filtration Rate Calc 70 mL/min (>90) BUN/Creatinine Ratio 11.4 (10.0-20.0) Serum Glucose 227 mg/dL (74-106) Calcium Level 10.0 mg/dL (8.7-10.4) Other Laboratory Tests 04/14/25 11:37 Brief Hx & Hospital Course: 69-year-old male with a history of hypertension diabetes hypercholesterolemia history of coronary artery disease status post stents by Dr. Horner two years ago came in complaining of chest pain troponin negative x3 vital stable. Seen by Cardiology Dr. Horner who ruled out acute coronary syndrome. Cardiolite stress test result pending. The patient being discharged home. TJ Watson advised to d ischarge the patient after clearance by . Consults/Reason for consult Cardiology Dr. 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 Horner, treatment per ACS protocol, Cardiolite stress test result pending History of coronary artery disease status post stents by Dr. Horner two yrs ago Diabetes Hypertension Hypercholesterolemia Discharge Disposition: Home Discharge Instruct/Medications Diet: Cardiac 2g Na,low cholest Activity: Light activity Follow Up/Referral: Follow up with your primary Dr and Cardiology Dr. Horner Medications: none 35 (Time taken for discharge summary 35 minutes) Discharge Statement: "Patient was advised to return to the ER or call 911 if any headaches, dizziness, shortness of breath, chest pain, abdominal pain, bleeding, fevers, or worsening of medical condition. Patient was counseled about treatment plan, medications, possible side effects, patientverbalized understanding. All questions were answered to the best of my ability. This discharge took greater then 30 minutes in planning, reviewing documentation, counseling the patient, and discussing with other team members." ASSESSMENT ASSESSMENT Hospital Course Improved Assessment Chest pain coronary artery disease ruled out : Troponin negative x3, consult for patient's electrical mechanic Dr. Horner, treatment per ACS protocol, Cardiolite stress test result pending History of coronary artery disease status post stents by Dr. Horner two yrs ago Diabetes Hypertension Hypercholesterolemia Date of Service: April 17, 2025 Billing Provider: RADHA THOMAS MD Common Visit Codes: 48853-GHN/OBS DISCH DAY >30min RADHA THOMAS MD April 17, 2025 10:27
[2025-04-17 13:00] VITALS: BP_SYST 128; PULSE 74; RESP 18; TEMP 97.7; O2SAT 96
[2025-04-17 15:30] VITALS: BP 139/83; PULSE 86; RESP 18; TEMP 36.5; O2SAT 96
--- NOTE | 2025-04-18 07:58 | ECG ---
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
--- NOTE | 2025-04-18 11:26 | DVHSR ---
APPROVED REPORT Exam: Nuclear Stress Test Indication: CHEST PAIN, R/O ICM BMI: 0 Medical History Medical History: CAD S/P Stent by Reba x2 years ago, DM, HTN, HLD Stress Test Details Stress Test: Pharmacologic stress testing performed using 0.4 mg of regadenoson per 5 mL given IV ov er 10 seconds. HR Resting HR: 91 bpmMax Heart Rate (APMHR): 152.380597 bpm Max HR Achieved: 131 bpmTarget HR (85% APMHR): 129.830752 bpm % of APMHR: 86.18 Recovery HR: 100 bpm BP Resting BP: 169/75 mmHg Recovery BP: 160/66 mmHg ECG Resting ECG: Sinus Rhythm Clinical Reason for Termination: Completed protocol Stress ECG Conclusion lvef 73% no severe ischmiea noted inferior wall GI artifactnoted NM EXAM: Myocardial Perfusion REST/STRESS Imaging Protocol: Rest Tc-99m/Stress Tc-99m 1 day Resting Data Rest SPECT myocardial perfusion imaging was performed in supine position 60 minutes following the int ravenous injection of 8.0 mCi of Tc-99m Sestamibi. Time of rest injection: 08:05 Date: 04/16/2025 Time of rest imagin:05 Date: 04/16/2025 Administration Route: IV Administration Site: Left Arm Pharmacologic Stress Pharmacologic stress test was performed by injecting Regadenoson 0.4 mg IV push followed by the intra venous injection of 33.0 mCi of Tc-99m Sestamibi. Time of stress injection: 10:14 Date: 04/16/2025 Time of stress imagin:14 Date: 04/16/2025 Administration Route: IV Administration Site: Left Arm Gated Stress SPECT was performed 60 minutes after stress injection. The images were gated to evaluate regional wall motion and calculate left ventricular ejection fracti on. Stress only was performed in the Supine position. Nuclear Conclusion Nuclear Findings: negative for ischemia lvef 73% no severe ischmiea noted inferior wall GI artifactnoted
== END 2025-04-17 16:17 | disposition home or self-care (01) | DRG 206 ==
LOC: ER 11:26 → OVERFLOW 16:25 → EAST 23:30 → TELE-EAST 04-15 01:37
PROVIDERS: ADMIT Family Medicine; ATTEND Family Medicine
DX: M94.0 Chondrocostal junction syndrome [Tietze] (principal); E78.00 Pure hypercholesterolemia, unspecified; I10 Essential (primary) hypertension; E11.9 Type 2 diabetes mellitus without complications; G89.29 Other chronic pain; Z79.84 Long term (current) use of oral hypoglycemic drugs; Z79.899 Other long term (current) drug therapy; Z79.82 Long term (current) use of aspirin; Z80.0 Family history of malignant neoplasm of digestive organs; Z83.6 Family history of other diseases of the respiratory system; Z80.52 Family history of malignant neoplasm of bladder; Z80.1 Family history of malignant neoplasm of trachea, bronchus and lung; Z82.49 Family history of ischemic heart disease and other diseases of the circulatory system; Z82.3 Family history of stroke; Z88.5 Allergy status to narcotic agent; Z88.8 Allergy status to other drugs, medicaments and biological substances; Z82.5 Family history of asthma and other chronic lower respiratory diseases; Z85.038 Personal history of other malignant neoplasm of large intestine; Z95.5 Presence of coronary angioplasty implant and graft
CPT/HCPCS: 36415; 71045; 78452; 80048; 82962; 84484; 85025; 93005; 93017; 93306; 96374; 96375; 99291; G0378; J1815; J2405